=== PATIENT | male | born 1980 | race Caucasian/White ===

== ENCOUNTER 2016-07-03 04:46 | Emergency (ER) | payer BC ==
[2016-07-03 05:22] LABS: HEMOGLOBIN 17.3 gm/dl (14.0-17.5); RED BLOOD COUNT 6.11 M/UL (4.20-5.50); WHITE BLOOD COUNT 8.5 K/UL (4.5-11.0)
[2016-07-03 05:38] LABS: BUN/CREATININE RATIO 19 (0-10)
== END 2016-07-03 09:19 | disposition home or self-care (01) ==
LOC: ER1 04:46
PROVIDERS: Emergency Medicine
DX: N13.2 Hydronephrosis with renal and ureteral calculous obstruction (principal); R31.9 Hematuria, unspecified; K59.00 Constipation, unspecified; G89.29 Other chronic pain; F17.200 Nicotine dependence, unspecified, uncomplicated; Z79.891 Long term (current) use of opiate analgesic
CPT/HCPCS: 36415; 80053; 81001; 83690; 85025; 96361; 96374; 96375; 99284; J1885; J2405; J7030

== ENCOUNTER 2020-11-20 18:39 | Emergency (ER) | payer OTHER ==
[~2020-11-20 18:39] MED LIST: ACYCLOVIR400 MG PO; ADIPEX-P37.5 M1 PO; ARTIFICIAL TEAR15 M2 OP; CLEOCIN HCL300 MG PO; DOXYCYCLINE HY100 M2 PO; GABAPENTIN600 MG PO; MEDROL4 MG PO; Magic Mouth Wash PO; NAPROSYN500 MG PO; NORCO 10-325 T1 EACH PO; PREDNISONE 50 M50 MG PO
[2020-11-20 19:43] LABS: HEMOGLOBIN 17.8 gm/dl (14.0-17.5); RED BLOOD COUNT 6.43 M/UL (4.20-5.50); WHITE BLOOD COUNT 11.1 K/UL (4.5-11.0)
[2020-11-20 19:50] LABS: BUN/CREATININE RATIO 17 (0-10)
== END 2020-11-20 22:21 | disposition home or self-care (01) ==
LOC: ER1 18:39
PROVIDERS: Physician Assistant
DX: R10.84 Generalized abdominal pain (principal); F17.210 Nicotine dependence, cigarettes, uncomplicated
CPT/HCPCS: 80053; 81001; 83690; 85025; 87086; 99284; Q9967

== ENCOUNTER 2020-11-25 18:47 | Emergency (ER) | payer OTHER ==
[2020-11-25] MEDS ORDERED: NAPROXEN500 MG PO (20:06)
== END 2020-11-25 20:30 | disposition home or self-care (01) ==
LOC: ER1 18:47
DX: S93.402A Sprain of unspecified ligament of left ankle, initial encounter (principal); W17.2XXA Fall into hole, initial encounter
CPT/HCPCS: 73610; 99283

== ENCOUNTER → 2020-12-26 | Outpatient (CLI) | payer OTHER ==
[~2020-12-26] MED LIST changes: +NAPROXEN500 MG PO
== END ==
LOC: KOH-I 08:57
DX: R10.11 Right upper quadrant pain (principal); K76.0 Fatty (change of) liver, not elsewhere classified
CPT/HCPCS: 76705

== ENCOUNTER → 2021-01-04 | Outpatient (CLI) | payer OTHER | LOC: KOH-I 08:15 | DX: S82.892A Other fracture of left lower leg, initial encounter for closed fracture (principal) | CPT/HCPCS: 73610 ==

== ENCOUNTER → 2021-08-15 | Outpatient (CLI) | payer OTHER | LOC: KOH-I 10:38 | DX: R06.02 Shortness of breath (principal); J98.11 Atelectasis | CPT/HCPCS: 71046 ==

== ENCOUNTER → 2021-08-21 | Outpatient (CLI) | payer OTHER | LOC: HEART 5 09:09 | DX: I50.9 Heart failure, unspecified (principal); I77.819 Aortic ectasia, unspecified site | CPT/HCPCS: 93306 ==

== ENCOUNTER → 2021-09-20 | Outpatient (CLI) | payer OTHER | LOC: HEART 5 14:37 | DX: J44.9 Chronic obstructive pulmonary disease, unspecified (principal); R06.02 Shortness of breath | CPT/HCPCS: 94060; 94729 ==

== ENCOUNTER 2021-10-04 09:41 | Emergency (ER) | payer OTHER ==
[2021-10-04 10:50] LABS: HEMOGLOBIN 17.2 gm/dl (14.0-17.5); RED BLOOD COUNT 6.41 M/UL (4.20-5.50); WHITE BLOOD COUNT 10.8 K/UL (4.5-11.0)
[2021-10-04 11:16] LABS: BUN/CREATININE RATIO 19 (0-10)
[2021-10-04] MEDS ORDERED: ZOFRAN 4 MG TAB4 MG PO (12:38)
[2021-10-04] MEDS ORDERED: BENTYL 20MG TAB20 MG PO (12:38)
[2021-10-04] MEDS ORDERED: PROTONIX40 MG PO (12:38)
== END 2021-10-04 12:48 | disposition home or self-care (01) ==
LOC: ER1 09:41
PROVIDERS: Physician Assistant Medical
DX: R10.9 Unspecified abdominal pain (principal); R19.7 Diarrhea, unspecified; R11.0 Nausea; I50.9 Heart failure, unspecified; R10.817 Generalized abdominal tenderness
CPT/HCPCS: 80053; 81001; 83605; 83690; 85025; 99284; Q9967

== ENCOUNTER → 2021-10-23 | Outpatient (CLI) | payer OTHER ==
[~2021-10-23] MED LIST changes: +BENTYL 20MG TAB20 MG PO; +PROTONIX40 MG PO; +ZOFRAN 4 MG TAB4 MG PO
== END ==
LOC: KOH-I 09:49
DX: R10.11 Right upper quadrant pain (principal); K76.0 Fatty (change of) liver, not elsewhere classified
CPT/HCPCS: 76705